=== PATIENT | female | born 1990 | race Caucasian/White ===

== ENCOUNTER 2017-09-17 07:21 | Emergency (ER) | payer OTHER ==
[~2017-09-17] VITALS: Ht 152.4 cm; Wt 50.5 kg
[2017-09-17 07:25] VITALS: BP 97/53
== END 2017-09-17 07:56 | disposition home or self-care (01) ==
LOC: ED 07:21
DX: S93.402A Sprain of unspecified ligament of left ankle, initial encounter (principal); X58.XXXA Exposure to other specified factors, initial encounter; Y93.89 Activity, other specified; Y99.8 Other external cause status; Y92.89 Other specified places as the place of occurrence of the external cause

== ENCOUNTER 2018-01-06 10:05 | Emergency (ER) | payer OTHER ==
[~2018-01-06] VITALS: Ht 152.4 cm; Wt 50.9 kg
[2018-01-06 10:07] VITALS: Ht 152.4 cm; Wt 50.9 kg
[2018-01-06 11:24] VITALS: BP 116/53
== END 2018-01-06 11:24 | disposition home or self-care (01) ==
LOC: ED 10:05
DX: S76.811A Strain of other specified muscles, fascia and tendons at thigh level, right thigh, initial encounter (principal); X58.XXXA Exposure to other specified factors, initial encounter; Y93.67 Activity, basketball; Y92.89 Other specified places as the place of occurrence of the external cause; Y99.8 Other external cause status
CPT/HCPCS: J1885